=== PATIENT | male | born 1980 | race African-American/Black ===

== ENCOUNTER → 2020-09-08 | Outpatient (CLI) | payer BC, OTHER ==
--- NOTE | 2020-09-08 11:16 | Diagnostic Imaging Report ---
INDICATION: Right ankle pain. COMPARISON: None available. TECHNIQUE: Three views of right ankle are obtained. FINDINGS: No fracture or malalignment. No osteochondral lesion of talar dome. Achilles shadow is normal in appearance. No features of osseous tarsal coalition. IMPRESSION: No fracture about the right ankle. Dictated by: Dictated on workstation # [id number]
--- NOTE | 2020-09-08 11:17 | Diagnostic Imaging Report ---
INDICATION: Right foot pain with injury 3 weeks ago. COMPARISON: None available. TECHNIQUE: 3 views of the right foot were obtained. FINDINGS: No acute or healing fracture. No traumatic malalignment on nonweightbearing imaging. Normal osseous mineralization without erosions. IMPRESSION: No acute or healing fracture involving the right foot. Dictated by: Dictated on workstation # [id number]
== END ==
LOC: LAB FS 08:52
PROVIDERS: ATTEND Nurse Practitioner
DX: S99.921A Unspecified injury of right foot, initial encounter (principal)
CPT/HCPCS: 73610; 73630